=== PATIENT | female | born 2005 | race Two or more races ===

== ENCOUNTER 2024-06-05 10:53 | Outpatient (AMB) | payer MEDICAID, SELFPAY ==
[2024-06-05 11:04] VITALS: BP 110/69; PULSE 81; RESP 18; TEMP 36.5; O2SAT 98; BMI 24.5
--- NOTE | 2024-06-05 11:08 | GSCOFFNT_ITS ---
Vital Signs - [facility] 06/05/24 11:04 06/05/24 11:09 Height 1.57 m Height Method Stated Weight 60.866 kg Weight Measurement Method Standing Scale BMI 24.5 BP 110/69 110/69 Blood Pressure Source Automatic Cuff Blood Pressure Location Right Upper Arm Position Sitting Respiration 18 18 Pulse 81 81 Pulse Source Monitor Temp 97.7 F 97.7 F Temp Source Temporal Artery Scan Pulse Oximetry (%) 98 98 Oxygen Delivery Method Room Air Med/Allergies Allergies & Medications Allergies No Known Drug Allergies Allergy (Verified 06/05/24 11:08) Medication Reconciliation ergocalciferol (vitamin D2) 1,250 mcg (50,000 unit) capsule 1,250 mcg PO QWEEK 06/05/24 [History Confirmed 06/05/24] hydroxyzine HCl 25 mg tablet 25 mg PO BID PRN 06/05/24 [History Confirmed 0 06/05/24] ibuprofen 200 mg tablet 200 mg PO Q6H PRN 06/05/24 [History Confirmed 06/05/24] omeprazole 20 mg capsule,delayed release 20 mg PO QDAY 06/05/24 [History Confirmed 06/05/24] MA Intake Visit Data Collection New Patient or Established: New Patient (never been to [facility]) Seen by Clinical Staff ONLY (RN/MA): No Reason for Visit:: GALLSTONES Pain Present Currently: No Pain scale:: 0 Pain Scale Used: Rodriguez-Leija/[employer] Locker Room Attendant Required: No PCP or OBGYN visit in last 3 months: Yes Hx Now: No Date of Last Menstrual Period: 05/14/24 Do You Feel Safe at Home: Yes Authorities Contacted: N/A Smoking Status Smoking Status: Never smoker Immunization / Flu Flu Vaccine in the Last 12 Months: No Flu Vaccine Exclusion Criteria: No Exclusion Criteria Past Medical History Social History SMOKING STATUS: Smoking status: Never smoker Travel Risk Travel Hx Recent Travel: No HPI HPI Narrative 18F referred for symptomatic cholelithiasis. Pt reports for the past month she has had episodes of RUQ pain radiating to the back, usually after eating but sometimes spontaneous, which tend to be severe and are associated with nausea. She denies any fever or change in bowel habits. Pt went to ER for this monge and underwent abd US which showed a 1.4cm gallstone but no thickening or pericholecystic fluid PMH: None PSHx: None Meds: None Allergies: NKDA Social hx: Nonsmoker Family hx: No known malignancy ROS Review of Systems Systems Reviewed: All systems reviewed, normal except as documented Objective/Exam General General Appearance: alert, cooperative and well groomed Resp Respiratory exam: Absent respiratory distress Abdominal Abdominal exam: Present soft; Absent distention or tenderness Results Abdominal US reviewed from 05/21/24 Assessment & Plan Diagnosis / Problem List (1) Symptomatic cholelithiasis: Status: Acute Assessment & Plan: 18F presenting with signs/symptoms of symptomatic cholelithiasis. I explained that surgery is recommended due to a 30% of recurrent symptoms, and explained risks of surgery including need for conversion to open, bleeding, infection requiring drainage and/or biliary stenting as well as the possibility of CBD injury requiring major biliary reconstruction which would require transfer to a tertiary center. I also explained risks of postoperative diarrhea and hernia. All questions were answered and pt is agreeable to proceeding Office Procedures GNS Level of Care Nursing/Assessment Patient Status: Initial/New Patient Nursing Assessment/Reassesment: Medication Reconciliation, Update PMH in EMR and Vital Signs Coordination of Care: Complex Care and Chronic Disease 1-5, Education Complex Pt/Fam, Consent,records obtained, informed consent, Results/Orders obtained and Staff clarify orders New Patient Charge New Patient Point Assignment: [id number] New Patient Point Charge: DIRECTOR DIGITAL COMMUNICATIONS Level 3 ([id number]) Patient Portal Questionaires Social History Tobacco History Smoking Status: Never smoker Domestic Abuse History Do You Feel Safe at Home: Yes Review of Systems Report any current symptoms Only answer those that you have currently: Past Medical History Past Medical History Have you ever been diagnosed with any of the following:
[2024-06-05 11:09] VITALS: BP 110/69; PULSE 81; RESP 18; TEMP 36.5; O2SAT 98
== END 2024-06-05 11:24 | disposition home or self-care (01) ==
LOC: HODSRG 10:53
PROVIDERS: PCP Family Medicine; Referring Provider Family Medicine; Supervising Provider Surgery; Visit Provider Surgery
DX: K80.20 Calculus of gallbladder without cholecystitis without obstruction (principal)
CPT/HCPCS: 99203; G0463

== ENCOUNTER 2024-07-05 07:30 | Day surgery (SDC) | payer MEDICAID, SELFPAY ==
[2024-07-04 09:17] VITALS: BMI 23.9
[2024-07-04 10:22] LABS: Basophils # (Auto) 0.1 Thou/mm3 (0.0-0.2); Basophils % (Auto) 1 % (0-2.5); Eosinophils # (Auto) 0.1 Thou/mm3 (0.0-0.5); Eosinophils % (Auto) 1 % (0-10); Hematocrit 37.4 % (36.0-46.0); Hemoglobin 13.1 g/dL (12.0-16.0); Immature Granulocytes % (Auto) 0 % (0-0); Immature Granulocytes Auto 0.02 Thou/mm3 (0.00-0.00); Lymphocytes # (Auto) 1.8 Thou/mm3 (1.0-4.8); Lymphocytes % (Auto) 25 % (10-50); Mean Corpuscular Hemoglobin 32.1 pg (25.0-35.0); Mean Corpuscular Volume 92 fL (80-100); Monocytes # (Auto) 0.7 Thou/mm3 (0.0-0.8); Monocytes % (Auto) 10 % (0-12); Neutrophils # (Auto) 4.4 Thou/mm3 (1.8-7.7); Neutrophils % (Auto) 63 % (37-80); Nucleated Red Blood Cell % 0 /100 WBC (0); Platelet Count 234 Thou/mm3 (140-440); RDW Standard Deviation 41.1 fL (36.4-46.3); Red Blood Count 4.08 Miln/mm3 (4.00-5.20); White Blood Count 6.9 Thou/mm3 (3.6-11.0)
[2024-07-04 10:30] LABS: INR 0.9 (0.9-1.3); Partial Thromboplastin Time 26.4 Seconds (22.0-36.0); Prothrombin Time 10.4 Seconds (9.0-12.2)
[2024-07-04 10:42] LABS: Anion Gap 8 (7-16); BUN/Creatinine Ratio 10 Ratio (12-20); Blood Urea Nitrogen 7 mg/dL (9-23); Calcium 8.8 mg/dL (8.3-10.6); Carbon Dioxide 26.3 mMol/L (20.0-31.0); Chloride 107 mMol/L (98-107); Creatinine (Component) 0.7 mg/dL (0.6-1.3); Estimated Creatinine Clearance 105.2 mL/min (>60); Glucose 94 mg/dL (74-106); Osmolality,Calculated 279 (275-295); Potassium 4.5 mMol/L (3.4-5.1); Sodium 141 mMol/L (136-145); eGFR > 60 See Note
[2024-07-04 10:48] LABS: HCG,Qualitative Serum Negative
[2024-07-05] VITALS (7 sets, daily range): BP systolic 100–129; BP diastolic 60–77; PULSE 76–97; RESP 12–20; TEMP 36.2–37; O2SAT 94–100; BMI 23.8
--- NOTE | 2024-07-05 10:19 | SUR.PHASEI ---
1019: Pt. arrived with oral airway in place, vitals stable, breathing unlabored, no signs of distress, x5 dermabond sites to ABD CDI, no active bleed noted, report received from Arjun EAGLE and Hillary PRECIADO.
--- NOTE | 2024-07-05 10:24 | ESOP_ITS ---
Date of Procedure 07/05/24 Pre Op Diagnosis Symptomatic cholelithiasis Post Op Diagnosis Same Procedure Laparoscopic cholecystectomy Findings Gallbladder with stone Procedure Description After discussion of risks and benefits, patient was brought to the operating room, SCDs were placed and general anesthesia was induced. She received preop erative antibiotics and was prepped and draped in the usual sterile fashion. After timeout a supraumbilical incision was made with a #15 blade and the skin was elevated with towel clamps. A Veress needle was placed through the incision and proper positioning was confirmed with a drop test, however the abdominal pressure readings fluctuated between 0 to the 20s. At one point the pressure, however was stable around 12 mmHg so I attempted to insert the camera using a Visiport technique, however I was not clearly in the peritoneum so I opted to enter at Allen's point in the left upper quadrant for safety. The area was infiltrated with half percent Marcaine approximately 2 fingerbreadths inferior to the costal margin and the skin was incised with a #15 blade the Veress needle was again inserted and proper positioning was confirmed with a drop test. Again the abdominal pressure readings did fluctuate somewhat but then reached stability around 12 mmHg at which point inserted the 5 mm camera through the incision and this time safely reached the peritoneum. The area deep to the umbilicus was closely examined for any signs of injury, and there was some bruising of the omentum overlying the transverse colon, however it was thoroughly irrigated and there were no signs of full-thickness injury. A 5 mm port was placed at the umbilicus under direct vision, as well as 3 additional ports: one 12mm at the epigastrium, one 5mm right subcostal and one 5mm right anterior axillary line. Patient was placed in reverse Trendelenburg. The fundus of the gallbladder was grasped and retracted cephalad and the infundibulum was grasped and retracted laterally. Using blunt dissection the critical view of safety was achieved and the cystic duct and cystic artery were clipped and transected in the usual fashion. The gallbladder was removed from the gallbladder bed using electrocautery. Hemostasis of the gallbladder bed was achieved with electrocautery. The specimen was removed in an Endo Catch bag via the epigastric port and the epigastric fascia was closed with 0 Vicryl suture using a Berny-Jonel. Pneumoperitoneum was released and ports were removed under direct vision. Incisions were irrigated and infiltrated with half percent Marcaine for a total of 30cc. Incisions were closed with 4 Monocryl and reinforced with Dermabond. Patient was extubated and brought to PACU in stable condition Pathology / specimen Other (Gallbladder) Estimated Blood Loss 20 Surgeon Kristi Powers MD Surgical Staff Operation Date: 07/05/24 09:45 Case Staff [employer] PROGRAMS DIRECTOR: Arjun Lara RNmolder meat: Wandy Wood
--- NOTE | 2024-07-05 10:29 | PD.SURDS ---
Planned Discharge Date 07/05/24 DS: Providers Provider Primary care physician: TIFFANY Hussein Attending Provider on Admission: Kristi Powers MD Attending Provider on DC: Kristi Powers MD Discharging Provider: Kristi Powers MD Diagnosis Discharge Diagnosis (1) Symptomatic cholelithiasis: Status: Acute Problem List Completed Was Problem List Reviewed/Reconciled?: Yes Exam Vital Signs Temp Pulse Resp BP Pulse Ox 98.6 F 82 16 129/69 98 07/05/24 07:55 07/05/24 07:55 07/05/24 07:55 07/05/24 07:55 07/05/24 07:55 Discharge Plan Plan Patient Disposition: HOME (Self Care) Prescriptions/Referrals Prescriptions/Med Rec: New oxycodone-acetaminophen [Percocet] 5-325 mg tablet 1 tab PO Q6H MDD 6 tabs PRN (Reason: pain) Qty: 10 0RF No Action omeprazole 20 mg capsule,delayed release(DR/EC) 20 mg PO QDAY ibuprofen 800 mg tablet 800 mg PO Q8H PRN (Reason: pain) Patient Comments: PLEASE SEE ATTACHED FOR DETAILED DIRECTIONS Referrals: Latasha Pires FNP [Primary Care Provider] - Kristi Powers MD [Physician] - (You will receive a phone call to confirm a follow-up appointment with me in 2 weeks) Patient/Caregiver Discharge Instructions Other Discharge Activity Instructions:: Avoid lifting objects greater than 10 pounds for 6 weeks You may resume showering in 2 days, on 07/07 Your incisions have skin glue on them which will fall off on its own and does not need to be replaced Your stitches will not need to be removed During the surgery we fill your abdomen with air in order to see the structures. Some air tends to linger and causes pain that is referred to the shoulder and/or pain with deep breaths. This will improve with time. Being out of bed and walking helps the air to absorb faster You may take ibuprofen as needed in between doses of percocet or instead of percocet for mild-moderate pain If you develop worsening pain, nausea/vomiting, fever or jaundice please seek care in ER Education Materials: Anesthesia: General Anesthesia, Surgery Anesthesia After, Cholecystectomy Laparoscopic Dc, Preventing Surgical Site Infections, Skin Adhesive Wound Care Instructions, [facility] General SDC Instructions- Australian Print Language: Australian Stand Alone Forms: FlexScore Info., Patient Portal Info Letter Discharge Order Discharge Orders: Discharge (Routine); Ordered 07/05/24 Ordered By: Kristi Powers Results Results: Laboratory Laboratory results: results reviewed Results: Imaging US - abdomen: report reviewed Procedures Procedure Date 07/05/24 Procedures Laparoscopic cholecystectomy
[2024-07-05] MEDS: fentaNYL CIT INJ 50 mCg/ML AMP 2ML IVP (10:44)
--- NOTE | 2024-07-05 11:19 | SUR.PHASEII ---
1119: Pt. AAOx4, vitals stable, breathing unlabored, no complaint of pain or nausea, x5 dressing to ABD CDI, no active bleed noted, pt. tolerated sips of water well, pt. ambulated to wheelchair with steady gait and no assist, no complications. Gave discharge instructions to the pt. and her ride, both verbalized understanding and had no further questions. Pt. left with all personal belongings.
== END 2024-07-05 11:19 | disposition home or self-care (01) ==
PROVIDERS: PCP Nurse Practitioner Family; Referring Provider Surgery; Visit Provider Surgery
PROC: 0FT44ZZ Resection of Gallbladder, Percutaneous Endoscopic Approach (ICD-10-PCS; CPT 47562; principal; 2024-07-05 09:30)
DX: K80.10 Calculus of gallbladder with chronic cholecystitis without obstruction (principal)
CPT/HCPCS: 47562; 36415; 80048; 84703; 85025; 85610; 85730; A4217; A4649; J0131; J0694; J1100; J1885; J2250; J2405; J2704; J3010; J3490

== ENCOUNTER 2024-07-17 13:32 | Outpatient (AMB) | payer MEDICAID, SELFPAY ==
[2024-07-17 13:45] VITALS: BP 101/65; PULSE 90; RESP 19; TEMP 36.7; O2SAT 94; BMI 23.3
--- NOTE | 2024-07-17 13:45 | GSCOFFNT_ITS ---
Vital Signs - [facility] 07/17/24 13:45 Height 1.6 m Height Method Stated Weight 59.591 kg Weight Measurement Method Standing Scale BMI 23.3 BP 101/65 Blood Pressure Source Automatic Cuff Blood Pressure Location Left Upper Arm Position Sitting Respiration 19 Pulse 90 Pulse Source Monitor Temp 98.1 F Temp Source Temporal Artery Scan Pulse Oximetry (%) 94 L Oxygen Delivery Method Room Air Med/Allergies Allergies & Medications Allergies No Known Drug Allergies Allergy (Verified 07/17/24 13:45) Medication Reconciliation omeprazole 20 mg capsule,delayed release 20 mg PO QDAY 06/05/24 [History Confirmed 07/17/24] ibuprofen 800 mg tablet 800 mg PO Q8H PRN pain 07/04/24 [History Confirmed 07/17/24] oxycodone-acetaminophen 5 mg-325 mg tablet (Percocet) 1 tab PO Q6H PRN pain #10 tabs 07/05/24 [Rx Confirmed 07/17/24] MA Intake Visit Data Collection New Patient or Established: Established Patient (seen at [facility] within 3 years) Seen by Clinical Staff ONLY (RN/MA): No Reason for Visit:: LAB IRASEMA F/U Pain Present Currently: No PCP or OBGYN visit in last 3 months: Yes Hx Now: No Do You Feel Safe at Home: Yes Authorities Contacted: N/A Smoking Status Smoking Status: Never smoker Immunization / Flu Flu Vaccine in the Last 12 Months: No Flu Vaccine Exclusion Criteria: No Exclusion Criteria Past Medical History Past Medical History NEUROLOGIC: Negative Neurological Disorders or Seizures CARDIAC: Negative Cardiac Disorders or Congestive Heart Failure RESPIRATORY: Negative Chronic Obstructive Pulmonary Disease (COPD) GASTROINTESTINAL: Positive Gastrointestinal Disorders, Gall Bladder Disease and Gastroesophageal Reflux Disease GENITOURINARY: Negative Genitourinary Disorders or Renal Disease REPRODUCTIVE: Negative Previous Pregnancies ENDOCRINE: Negative Endocrine Disorders, Diabetes Mellitus Type 1 or Diabetes Mellitus Type 2 HEMATOLOGIC: Negative Blood Disorders OTHER HISTORY: Negative Hospitalization, Autoimmune Disease, Shingles, Blood Transfusions, Blood Transfusion Reaction, Anesthesia Reactions or Cancer Family History FAMILY HISTORY: Positive Family Surgery; Negative Family Psychiatric Problems, Family Respiratory Disorders, Family Cardiac Disorders, Family Gastrointestinal Problems, Family Cancer or Family Anesthesia Reaction Social History SMOKING STATUS: Smoking status: Never smoker ALCOHOL: Alcohol Intake: Never HOUSING: Housing: House HPI HPI Narrative 19F s/p lap irasema 07/05 for symptomatic cholelithiasis presenting for planned follow up. Pt states she used the prescription pain medications for the first two days postop, and had constipation at that time but since then has felt better with minimal pain and her BMs have returned to normal. She is gradually resuming her regular diet and denies any fever or jaundice ROS Review of Systems Systems Reviewed: All systems reviewed, normal except as documented Objective/Exam General General Appearance: alert, cooperative and well groomed Resp Respiratory exam: Absent respiratory distress Abdominal Abdominal exam: Present soft and incision (c/d/i, no erythema, no fluctuance or tenderness); Absent distention or tenderness Results Pathology of gallbladder reviewed Assessment & Plan Diagnosis / Problem List (1) Chronic cholecystitis: Status: Acute Assessment & Plan: 19F s/p lap irasema 07/05 with findings of chronic cholecystitis, recovering well Plan: Follow up as needed Office Procedures GNS Level of Care Nursing/Assessment Patient Status: Established Patient Nursing Assessment/Reassesment: Medication Reconciliation, Update PMH in EMR and Vital Signs Coordination of Care: Complex Care and Chronic Disease 1-5, Consent,records obtained, informed consent, Education Simp Pt/Fam, Results/Orders obtained and Staff clarify orders Established Patient Charge Established Patient Point Assignment: 90 Established Patient Point Charge: EP Level 3 (80-115) Patient Portal Questionaires Social History Living Situation History Housing: House Tobacco History Smoking Status: Never smoker Alcohol History Alcohol Intake: Never Domestic Abuse History Do You Feel Safe at Home: Yes Review of Systems Report any current symptoms Only answer those that you have currently: Past Medical History Past Medical History Have you ever been diagnosed with any of the following: Neurological Problems Seizures: No Cardiology Problems Congestive Heart Failure: No Respiratory Problems Chronic Obstructive Pulmonary Disease (COPD): No Stomache/Intestinal Problems Gall Bladder Disease: Yes Gastroesophageal Reflux Disease: Yes Genital/Urinary Problems Renal Disease: No Reproductive Problems Previous Pregnancies: No Endocrine Problems Diabetes Mellitus Type 1: No Diabetes Mellitus Type 2: No Other Problems Hospitalization: No Autoimmune Disease: No Shingles: No Blood Transfusions: No Blood Transfusion Reaction: No Anesthesia Reactions: No Cancer: No
== END 2024-07-17 13:50 | disposition home or self-care (01) ==
LOC: HODSRG 13:32
PROVIDERS: PCP Nurse Practitioner Family; Referring Provider Nurse Practitioner Family; Supervising Provider Surgery; Visit Provider Surgery
DX: Z48.815 Encounter for surgical aftercare following surgery on the digestive system (principal)
CPT/HCPCS: 99213; G0463